=== PATIENT | male | born 1955 | race Caucasian/White ===

== ENCOUNTER 2021-11-06 10:50 | Emergency (ER) | payer BC, OTHER ==
[~2021-11-06] VITALS: Ht 177 cm; Wt 86.0 kg
--- NOTE | 2021-11-06 10:54 | ED General ---
General Stated Complaint: SYNCOPAL EPISODE History of Present Illness Date Seen by Provider: Nov 06, 2021 Time Seen by Provider: 10:50 Initial Comments 66-year-old male with no significant PM is brought in by EMS with complaints of passing out while he was cutting grass and weeds today morning. There are multiple witnesses around him when this occurred. Patient was initially found to be hypotensive by EMS and was given IV fluids with resulting improvement in his blood pressure. Witnesses deny any signs of seizures. Witnesses reported that patient passed out and was out for about a minute. Patient states that he felt lightheaded and nauseous at the same time and fainted. Denies history of seizures or cardiovascular or neurological history. Denies recent illnesses, fever, chest pain, shortness of breath, palpitation, diarrhea or constipation, dysuria. Patient drinks about 1-1/2 pots of coffee today morning, and did not eat any breakfast or drink any water. Patient was outside doing outdoor work when this occurred. Allergies and Home Medications Allergies Coded Allergies: No Known Drug Allergies (Unverified , 11/06/21) Patient Home Medication List Home Medication List Reviewed: Yes Review of Systems Review of Systems Constitutional: other (light headed) EENTM: no symptoms reported Respiratory: no symptoms reported Cardiovascular: syncope Gastrointestinal: nausea, vomiting Genitourinary: no symptoms reported Musculoskeletal: no symptoms reported Skin: other (diaphoresis) Psychiatric/Neurological: Other (syncope) Hematologic/Lymphatic: No Symptoms Reported Immunological/Allergic: no symptoms reported Physical Exam Vital Signs Vital Signs - First Documented 11/06/21 11:22 Temp 36.4 Pulse 66 Resp 16 B/P (MAP) 123/87 (99) Pulse Ox 99 O2 Delivery Room Air Capillary Refill : Height, Weight, BMI Height: '" Weight: lbs. oz. kg; BMI Method: General Appearance: Mild Distress, Thin HEENT: PERRL/EOMI Neck: Full Range of Motion, Normal Inspection, Non Tender, Supple Respiratory: Chest Non Tender, Lungs Clear, Normal Breath Sounds, No Accessory Muscle Use Cardiovascular: Regular Rate, Rhythm, No Edema Gastrointestinal: Normal Bowel Sounds, No Organomegaly, Non Tender, Soft Back: No CVA Tenderness Neurologic/Psychiatric: Alert, Oriented x3, No Motor/Sensory Deficits, Normal Mood/Affect, director of community center II-XII Norm as Tested Skin: Diaphoresis Lymphatic: No Adenopathy Focused Exam Lactate Level 11/06/21 11:08: Lactic Acid Level 3.43*H 11/06/21 13:32: Lactic Acid Level 1.56 Lactic Acid Level Laboratory Tests Test 11/06/21 11:08 11/06/21 13:32 Lactic Acid Level 3.43 MMOL/L (0.50-2.00) *H 1.56 MMOL/L (0.50-2.00) Progress/Results/Core Measures Suspected Sepsis SIRS Temperature: Pulse: Respiratory Rate: Laboratory Tests 11/06/21 11:08: White Blood Count 7.0 Blood Pressure / Mean: 11/06/21 11:08: Lactic Acid Level 3.43*H 11/06/21 13:32: Lactic Acid Level 1.56 Laboratory Tests 11/06/21 11:08: Creatinine 1.05, INR Comment 1.0, Platelet Count 422H, Total Bilirubin 0.4 Results/Orders Lab Results Laboratory Tests Test 11/06/21 11:08 11/06/21 13:32 11/06/21 13:52 Range/Units White Blood Count 7.0 4.3-11.0 10^3/uL Red Blood Count 4.49 4.30-5.52 10^6/uL Hemoglobin 10.9 L 13.3-17.7 g/dL Hematocrit 35 L 40-54 % Mean Corpuscular Volume 78 L 80-99 fL Mean Corpuscular Hemoglobin 24 L 25-34 pg Mean Corpuscular Hemoglobin Concent 31 L 32-36 g/dL Red Cell Distribution Width 15.5 H 10.0-14.5 % Platelet Count 422 H 130-400 10^3/uL Mean Platelet Volume 9.9 9.0-12.2 fL Immature Granulocyte % (Auto) 0 % Neutrophils (%) (Auto) 52 42-75 % Lymphocytes (%) (Auto) 26 12-44 % Monocytes (%) (Auto) 18 H 0-12 % Eosinophils (%) (Auto) 4 0-10 % Basophils (%) (Auto) 1 0-10 % Neutrophils # (Auto) 3.6 1.8-7.8 10^3/uL Lymphocytes # (Auto) 1.8 1.0-4.0 10^3/uL Monocytes # (Auto) 1.3 H 0.0-1.0 10^3/uL Eosinophils # (Auto) 0.3 0.0-0.3 10^3/uL Basophils # (Auto) 0.1 0.0-0.1 10^3/uL Immature Granulocyte # (Auto) 0.0 0.0-0.1 10^3/uL Neutrophils % (Manual) 58 % Lymphocytes % (Manual) 27 % Monocytes % (Manual) 10 % Eosinophils % (Manual) 4 % Band Neutrophils 1 % Clumped Platelets SLIGHT Microcytosis SLIGHT Claudine Cells SLIGHT Elliptocytes SLIGHT Acanthocytes SLIGHT Prothrombin Time 13.7 12.2-14.7 SEC INR Comment 1.0 0.8-1.4 Activated Partial Thromboplast Time 22 L 24-35 SEC D-Dimer 0.34 0.00-0.49 UG/ML Sodium Level 136 135-145 MMOL/L Potassium Level 3.9 3.6-5.0 MMOL/L Chloride Level 100 98-107 MMOL/L Carbon Dioxide Level 18 L 21-32 MMOL/L Anion Gap 18 H 5-14 MMOL/L Blood Urea Nitrogen 19 H 7-18 MG/DL Creatinine 1.05 0.60-1.30 MG/DL Estimat Glomerular Filtration Rate 79 BUN/Creatinine Ratio 18 Glucose Level 155 H 70-105 MG/DL Lactic Acid Level 3.43 *H 1.56 0.50-2.00 MMOL/L Calcium Level 8.7 8.5-10.1 MG/DL Corrected Calcium 8.7 8.5-10.1 MG/DL Magnesium Level 1.9 1.6-2.4 MG/DL Total Bilirubin 0.4 0.1-1.0 MG/DL Aspartate Amino Transf (AST/SGOT) 21 5-34 U/L Alanine Aminotransferase (ALT/SGPT) 14 0-55 U/L Alkaline Phosphatase 61 40-136 U/L Troponin I < 0.30 <0.30 NG/ML Total Protein 6.8 6.4-8.2 GM/DL Albumin 4.0 3.2-4.5 GM/DL Serum Alcohol < 10 <10 MG/DL Urine Color YELLOW Urine Clarity CLEAR Urine pH 6.0 5-9 Urine Specific [place] 1.020 1.016-1.022 Urine Protein NEGATIVE NEGATIVE Urine Glucose (UA) NEGATIVE NEGATIVE Urine Ketones 2+ H NEGATIVE Urine Nitrite NEGATIVE NEGATIVE Urine Bilirubin NEGATIVE NEGATIVE Urine Urobilinogen 0.2 < = 1.0 MG/DL Urine Leukocyte Esterase NEGATIVE NEGATIVE Urine RBC (Auto) NEGATIVE NEGATIVE Urine RBC NONE /HPF Urine WBC RARE /HPF Urine Crystals NONE /LPF Urine Bacteria NEGATIVE /HPF Urine Casts NONE /LPF Urine Mucus NEGATIVE /LPF Urine Culture Indicated NO Urine Opiates Screen NEGATIVE NEGATIVE Urine Oxycodone Screen NEGATIVE NEGATIVE Urine Methadone Screen NEGATIVE NEGATIVE Urine Propoxyphene Screen NEGATIVE NEGATIVE Urine Barbiturates Screen NEGATIVE NEGATIVE Ur Tricyclic Antidepressants Screen NEGATIVE NEGATIVE Urine Phencyclidine Screen NEGATIVE NEGATIVE Urine Amphetamines Screen NEGATIVE NEGATIVE Urine Methamphetamines Screen NEGATIVE NEGATIVE Urine Benzodiazepines Screen NEGATIVE NEGATIVE Urine Cocaine Screen NEGATIVE NEGATIVE Urine Cannabinoids Screen NEGATIVE NEGATIVE My Orders Orders - BHUPINDER ASKEW MD Alcohol (11/06/21 10:55) Cbc With Automated Diff (11/06/21 10:55) Comprehensive Metabolic Panel (11/06/21 10:55) Fibrin Degradation Products (11/06/21 10:55) Drug Screen Stat (Urine) (11/06/21 10:55) Lactic Acid Analyzer (11/06/21 10:55) Magnesium (11/06/21 10:55) Protime With Inr (11/06/21 10:55) Partial Thromboplastin Time (11/06/21 10:55) Ua Culture If Indicated (11/06/21 10:55) Troponin I Fs (11/06/21 10:55) Ct Head Wo (11/06/21 10:57) Ekg Tracing (11/06/21 10:57) Continuous Ekg Monitoring (11/06/21 10:57) Ed Iv/Invasive Line Start (11/06/21 10:57) Ns Iv 1000 Ml (Sodium Chloride 0.9%) (11/06/21 11:00) Manual Differential (11/06/21 11:08) Chest 1 View Ap/Pa Only (11/06/21 11:29) Iohexol Injection (Omnipaque 350 Mg/Ml 1 (11/06/21 12:30) Received Contrast (Hold Metformin- Contr (11/06/21 12:30) Sodium Chloride Flush (Catheter Flush Sy (11/06/21 12:30) Ns (Ivpb) (Sodium Chloride 0.9% Ivpb Bag (11/06/21 12:30) Ct Angio Chest/Abd W (11/06/21 12:25) Medications Given in ED Current Medications Medications Dose Ordered Sig/Nadir Route Start Time Stop Time Status Last Admin Dose Admin Iohexol 100 ml ONCE ONCE IV 11/06/21 12:30 11/06/21 12:31 DC 11/06/21 12:41 100 ML Sodium Chloride 100 ml ONCE ONCE IV 11/06/21 12:30 11/06/21 12:31 DC 11/06/21 12:41 100 ML Vital Signs/I&O 11/06/21 11:22 Temp 36.4 Pulse 66 Resp 16 B/P (MAP) 123/87 (99) Pulse Ox 99 O2 Delivery Room Air Capillary Refill : Progress Note : Progress Note 1. SYNCOPE:Vasovagal, DEHYDRATION: - CT HEAD: no acute changes - CXR: unreamrkable - EKG/Troponin: nonischemic - Labs - UA/ UDS unremarkable except positive for ketones - NS IVF bolus - Discussed with Dr Garcia, pt can follow up out-patient with surgery clinic. Advised small frequent meals, avoid large meals and eating late at night, and daily protonix. Stated large hernias can cause vasovagal episodes due to irritation of vagus nerve. - Follow up with surgery clinic within the next 3 to 5 days. -The patient was seen in the ED, and treated appropriately to presentation at a specific point in time. Patient is informed that there is a possibility that disease and illness can evolve and change in acuity rapidly or slowly after patient is discharged from the ER. Precautionary advice given to the patient for immediate return to ER if symptoms worsen or do not resolve, and to seek emergency care sooner rather than later. Pt also advised on the importance of PCP follow up and compliance with management and follow up plan with PCP and/or specialist, as this is part of the management plan. Pt verbally expressed understanding. 2. HIATAL HERNIA: - CTA CHEST & ABDOMEN: see report Diagnostic Imaging Diagonstic Imaging: Xray, CT Plain Films/CT/US/NM/MRI: chest, abdomen, head Comments [facility]. [place], [place] NAME: MARIE KEMP [facility] REC#: [id number] PT STATUS: REG ER : 1955 PHYSICIAN: BHUPINDER ASKEW MD ADMIT DATE: 11/06/21/ER FS Draft Date of Exam:11/06/21 CT ANGIO CHEST/ABD W PROCEDURE: CT angiography of the abdomen and chest with and without contrast. TECHNIQUE: After intravenous administration of contrast, thin section axial CT angiography of the abdomen and chest were obtained. 3D MIP reformats were provided. Auto Exposure Controls were utilized during the CT exam to meet ALARA standards for radiation dose reduction. INDICATION: Syncope/aortic aneurysm CT CHEST: There is good opacification of pulmonary arteries without intraluminal filling defect. Thoracic aorta is of normal caliber with bovine type aortic arch. Atherosclerotic calcification involves coronary arteries. There is also mild thoracic aortic atherosclerotic calcification. Lungs appear clear. There is no significant pleural or pericardial effusion. There is a large hiatal hernia containing fluid. Within the abdomen, note is made of small filling defect adherent to the anterior wall of the upper abdominal aorta measuring approximately 0.5 cm in diameter. Otherwise, abdominal aorta is of normal caliber. There is no evidence of dissection or aneurysm. There is mild abdominal aortic atherosclerotic calcification. No focal hepatic, gallbladder, pancreatic, adrenal gland, splenic or renal abnormality is seen. The stomach is distended with gas and fluid. IMPRESSION: No CTA evidence of aneurysm within the chest or pelvis. Note is made of bovine type aortic arch with coronary artery calcification. Also there is an approximately 0.5 cm focus of noncalcified atherosclerotic plaque or thrombus lung anterior margin near the junction of thoracic and abdominal aorta. Otherwise no significant stenosis, dissection or pseudoaneurysm is identified. There is fluid distention of stomach with fluid extending into moderate to large hiatal hernia. Dictated on workstation # [id number] Dict: 11/06/21 1301 Trans: 11/06/21 1311 [facility] [id number] Interpreted by: GRACE AUGUSTINE MD Electronically signed by: [facility] [place] [place], [place] NAME: MARIE KEPM Alysia [facility] REC#: [id number] PT STATUS: REG ER : 1955 PHYSICIAN: BHUPINDER ASKEW MD ADMIT DATE: 11/06/21/ER FS Draft Date of Exam:11/06/21 CT HEAD WO INDICATION: syncope TECHNIQUE: Routine non contrast-enhanced axial images were obtained from the skull base to the vertex. Auto Exposure Controls were utilized during the CT exam to meet ALARA standards for radiation dose reduction COMPARISON: None. FINDINGS: The ventricles and cortical sulci are diffusely prominent, compatible with age-related volume loss. There are confluent areas of abnormal, low attenuation in the periventricular white matter. This is consistent with small vessel ischemic changes; age-indeterminate. There is no prior study available for comparison. There is no midline shift or mass-effect. No acute intra-axial hemorrhage is seen. There are no abnormal areas of increased or decreased density to suggest acute hemorrhage or edema. No extra-axial masses or collections are present. The bony calvarium is intact. The visualized paranasal sinuses are unremarkable. The mastoid air cells are clear. IMPRESSION: 1. No acute intracranial abnormality. No CT evidence of mass, acute infarct or intracranial hemorrhage. 2. Small vessel ischemic changes in the periventricular and subcortical white matter; likely chronic. Dictated on workstation # [id number] Dict: 11/06/21 1144 Trans: 11/06/21 1147 AS6 [id number] Interpreted by: JACEY MIXON MD Electronically signed by: [facility] [place], [place] NAME: MARIE KEMP [facility] REC#: [id number] PT STATUS: REG ER : 1955 PHYSICIAN: BHUPINDER ASKEW MD ADMIT DATE: 11/06/21/ER FS Signed Date of Exam:11/06/21 CHEST 1 VIEW AP/PA ONLY CLINICAL INDICATION: Patient with syncope. EXAM: Portable chest x-ray upright view. COMPARISON: None. FINDINGS: Lungs/pleura: Lungs are clear. There is no pneumothorax. There is no pleural effusion. Mediastinum: There is prominence of the lower mediastinal region which may represent a hiatal hernia, but abnormality of the distal thoracic aorta should be excluded. Pulmonary vasculature: Unremarkable. Heart: Unremarkable. Bones/extrathoracic soft tissue: Unremarkable. IMPRESSION: 1: There is no radiographic evidence of acute cardiopulmonary process. 2: There is prominence of the lower mediastinal region which may represent a hiatal hernia, but abnormality of the distal thoracic aorta should be excluded. Chest x-ray, PA and lateral views, is suggested for further evaluation. Dictated by: Dictated on workstation # [id number] Dict: 11/06/21 1147 Trans: 11/06/21 1205 AS6 [id number] Interpreted by: NILSA CAZARES MD Electronically signed by: NILSA CAZARES MD 11/06/21 1205 Departure Communication (Admissions) Time/Spoke to Consulting Phy: 14:[address] Garcia, pt can follow up out-patient with surgery clinic. Advised small frequent meals, avoid large meals and eating late at night, and daily protonix Impression Primary Impression: Syncope Qualified Codes: R55 - Syncope and collapse Additional Impressions: Hiatal hernia Disorder of vagus nerve Dehydration Disposition: HOME, SELF-CARE Condition: Improved Departure-Patient Inst. Referrals: JEREMI LARA MD (PCP) Primary Care Physician Patient Instructions: Hiatal Hernia (DC), Vasovagal Response, Dehydration, Adult (DC), Why Water Is Important to Health Add. Discharge Instructions: - Small frequent meals -Avoid large meals and avoid eating late at night -Protonix 40 mg daily -Follow-up with surgery clinic, Dr. Garcia's office: Office phone: [phone]. Call for appointment Scripts Pantoprazole Sodium (Protonix) 40 Mg 40 MG PO DAILY for 28 Days, #28 TAB Prov: BHUPINDER ASKEW MD 11/06/21 BHUPINDER ASKEW MD Nov 06, 2021 10:54
[2021-11-06] MEDS ORDERED: NS IV 1000 ML 1,000 ML IV SCH (11:00)
[2021-11-06 11:11] LABS: BASOPHILS # (AUTO) 0.1 10^3/uL (0.0-0.1); BASOPHILS % (AUTO) 1 % (0-10); EOSINOPHILS # (AUTO) 0.3 10^3/uL (0.0-0.3); EOSINOPHILS % (AUTO) 4 % (0-10); HEMATOCRIT 35 % (40-54); HEMOGLOBIN 10.9 g/dL (13.3-17.7); LYMPHOCYTES # (AUTO) 1.8 10^3/uL (1.0-4.0); LYMPHOCYTES % (AUTO) 26 % (12-44); MEAN CORPUSCULAR HEMOGLOBIN 24 pg (25-34); MEAN CORPUSCULAR HGB CONC 31 g/dL (32-36); MEAN CORPUSCULAR VOLUME 78 fL (80-99); MEAN PLATELET VOLUME 9.9 fL (9.0-12.2); MONOCYTES # (AUTO) 1.3 10^3/uL (0.0-1.0); MONOCYTES % (AUTO) 18 % (0-12); NEUTROPHILS # (AUTO) 3.6 10^3/uL (1.8-7.8); NEUTROPHILS % (AUTO) 52 % (42-75); PLATELET COUNT 422 10^3/uL (130-400)
[2021-11-06 11:23] LABS: PROTHROMBIN TIME PATIENT 13.7 SEC (12.2-14.7)
[2021-11-06 11:24] LABS: ACANTHOCYTES SLIGHT; BAND NEUTROPHILS 1 %; BURR CELLS SLIGHT; ELLIPT/OVALOCYTES SLIGHT; EOSINOPHILS % (MANUAL) 4 %; LYMPHOCYTES % (MANUAL) 27 %; MICROCYTOSIS SLIGHT; MONOCYTES % (MANUAL) 10 %; NEUTROPHILS % (MANUAL) 58 %; PLATELET CLUMPS SLIGHT
[2021-11-06 11:31] LABS: FIBRIN DEGRADATION PRODUCTS 0.34 UG/ML (0.00-0.49)
[2021-11-06 11:35] LABS: POTASSIUM 3.9 MMOL/L (3.6-5.0); SODIUM 136 MMOL/L (135-145)
[2021-11-06 11:36] LABS: ALANINE AMINOTRANSFERASE 14 U/L (0-55); ALKALINE PHOSPHATASE 61 U/L (40-136); BILIRUBIN,TOTAL 0.4 MG/DL (0.1-1.0); BUN/CREATININE RATIO 18; CALCIUM 8.7 MG/DL (8.5-10.1); CARBON DIOXIDE 18 MMOL/L (21-32); CHLORIDE 100 MMOL/L (98-107); CREATININE SERUM 1.05 MG/DL (0.60-1.30); GFR ESTIMATED 79; GLUCOSE 155 MG/DL (70-105); MAGNESIUM 1.9 MG/DL (1.6-2.4); TOTAL PROTEIN 6.8 GM/DL (6.4-8.2)
--- NOTE | 2021-11-06 11:48 | Diagnostic Imaging Report ---
INDICATION: syncope TECHNIQUE: Routine non contrast-enhanced axial images were obtained from the skull base to the vertex. Auto Exposure Controls were utilized during the CT exam to meet ALARA standards for radiation dose reduction COMPARISON: None. FINDINGS: The ventricles and cortical sulci are diffusely prominent, compatible with age-related volume loss. There are confluent areas of abnormal, low attenuation in the periventricular white matter. This is consistent with small vessel ischemic changes; age-indeterminate. There is no prior study available for comparison. There is no midline shift or mass-effect. No acute intra-axial hemorrhage is seen. There are no abnormal areas of increased or decreased density to suggest acute hemorrhage or edema. No extra-axial masses or collections are present. The bony calvarium is intact. The visualized paranasal sinuses are unremarkable. The mastoid air cells are clear. IMPRESSION: 1. No acute intracranial abnormality. No CT evidence of mass, acute infarct or intracranial hemorrhage. 2. Small vessel ischemic changes in the periventricular and subcortical white matter; likely chronic. Dictated by: Dictated on workstation # [id number]
--- NOTE | 2021-11-06 11:54 | Diagnostic Imaging Report ---
CLINICAL INDICATION: Patient with syncope. EXAM: Portable chest x-ray upright view. COMPARISON: None. FINDINGS: Lungs/pleura: Lungs are clear. There is no pneumothorax. There is no pleural effusion. Mediastinum: There is prominence of the lower mediastinal region which may represent a hiatal hernia, but abnormality of the distal thoracic aorta should be excluded. Pulmonary vasculature: Unremarkable. Heart: Unremarkable. Bones/extrathoracic soft tissue: Unremarkable. IMPRESSION: 1: There is no radiographic evidence of acute cardiopulmonary process. 2: There is prominence of the lower mediastinal region which may represent a hiatal hernia, but abnormality of the distal thoracic aorta should be excluded. Chest x-ray, PA and lateral views, is suggested for further evaluation. Dictated by: Dictated on workstation # [id number]
[2021-11-06] MEDS ORDERED: CATHETER FLUSH 10 ML SYR IV PRN (12:30)
[2021-11-06] MEDS ORDERED: IOHEXOL 350 MG/ML 100 ML (OMNIPAQUE 350) VIAL IV ONE (12:30)
[2021-11-06] MEDS ORDERED: HOLD METFORMIN - RECEIVED CONTRAST 20 ML VIAL IV SCH (12:30)
[2021-11-06] MEDS ORDERED: NS 100 ML (IVPB) BAG IV ONE (12:30)
--- NOTE | 2021-11-06 13:12 | Diagnostic Imaging Report ---
PROCEDURE: CT angiography of the abdomen and chest with and without contrast. TECHNIQUE: After intravenous administration of contrast, thin section axial CT angiography of the abdomen and chest were obtained. 3D MIP reformats were provided. Auto Exposure Controls were utilized during the CT exam to meet ALARA standards for radiation dose reduction. INDICATION: Syncope/aortic aneurysm CT CHEST: There is good opacification of pulmonary arteries without intraluminal filling defect. Thoracic aorta is of normal caliber with bovine type aortic arch. Atherosclerotic calcification involves coronary arteries. There is also mild thoracic aortic atherosclerotic calcification. Lungs appear clear. There is no significant pleural or pericardial effusion. There is a large hiatal hernia containing fluid. Within the abdomen, note is made of small filling defect adherent to the anterior wall of the upper abdominal aorta measuring approximately 0.5 cm in diameter. Otherwise, abdominal aorta is of normal caliber. There is no evidence of dissection or aneurysm. There is mild abdominal aortic atherosclerotic calcification. No focal hepatic, gallbladder, pancreatic, adrenal gland, splenic or renal abnormality is seen. The stomach is distended with gas and fluid. IMPRESSION: No CTA evidence of aneurysm within the chest or pelvis. Note is made of bovine type aortic arch with coronary artery calcification. Also there is an approximately 0.5 cm focus of noncalcified atherosclerotic plaque or thrombus lung anterior margin near the junction of thoracic and abdominal aorta. Otherwise no significant stenosis, dissection or pseudoaneurysm is identified. There is fluid distention of stomach with fluid extending into moderate to large hiatal hernia. Dictated by: Dictated on workstation # [id number]
[2021-11-06 13:56] LABS: BILIRUBIN,URINE NEGATIVE (NEGATIVE); CLARITY,URINE CLEAR; COLOR,URINE YELLOW; GLUCOSE, URINE (UA) NEGATIVE (NEGATIVE); KETONES,URINE 2+ (NEGATIVE); LEUKOCYTE ESTERASE ,URINE NEGATIVE (NEGATIVE); NITRITE,URINE NEGATIVE (NEGATIVE); PROTEIN,URINE NEGATIVE (NEGATIVE)
[2021-11-06 14:01] LABS: BACTERIA,URINE NEGATIVE /HPF; WBC,URINE RARE /HPF
[2021-11-06 14:16] LABS: AMPHETAMINE SCREEN, URINE NEGATIVE (NEGATIVE); BARBITURATE SCREEN URINE NEGATIVE (NEGATIVE); BENZODIAZEPINES SCREEN URINE NEGATIVE (NEGATIVE); CANNABINOID SCREEN, URINE NEGATIVE (NEGATIVE); COCAINE SCREEN URINE NEGATIVE (NEGATIVE); METHADONE STAT NEGATIVE (NEGATIVE); OPIATE SCREEN URINE NEGATIVE (NEGATIVE); OXYCODONE STAT NEGATIVE (NEGATIVE); PROPOXYPHENE STAT NEGATIVE (NEGATIVE); TRICYCLIC ANTIDEPRESSANTS SCRE NEGATIVE (NEGATIVE)
[2021-11-06] MEDS ORDERED: PANT40SU PO (14:47)
[2021-11-06 15:01] VITALS: BP 139/79
== END 2021-11-06 14:45 | disposition home or self-care (01) ==
LOC: ER FS 10:52
DX: R55 Syncope and collapse (principal); G52.2 Disorders of vagus nerve; K44.9 Diaphragmatic hernia without obstruction or gangrene; E86.0 Dehydration
CPT/HCPCS: 36415; 70450; 71045; 71275; 74175; 80053; 80306; 81000; 83605; 83735; 84484; 85007; 85027; 85379; 85610; 85730; G0480; 80320; 93005; Q9967

== ENCOUNTER 2021-11-13 09:20 | Outpatient (CLI) | payer BC ==
[~2021-11-13] VITALS: Ht 177.8 cm; Wt 88.9 kg
[~2021-11-13 09:20] MED LIST: PANT40SU PO
[2021-11-13] MEDS ORDERED: MULT-1056 PO (13:35)
[2021-11-13] MEDS ORDERED: PANT40TA52 PO (13:35)
== END 2021-11-13 13:36 | disposition home or self-care (01) ==
LOC: PREOP 09:20
PROVIDERS: ATTEND Surgery
DX: Z01.818 Encounter for other preprocedural examination (principal)

== ENCOUNTER 2021-11-22 10:14 | Day surgery (SDC) | payer BC ==
[~2021-11-22] VITALS: Ht 177 cm; Wt 88.9 kg
[~2021-11-22 10:14] MED LIST changes: +MULT-1056 PO; +PANT40TA52 PO
[2021-11-22] MEDS ORDERED: LACTATED RINGERS 1,000 ML IV ONE (10:22)
[2021-11-22] MEDS ORDERED: LACTATED RINGERS 1,000 ML IV STA (10:28)
[2021-11-22] MEDS ORDERED: HURRICAINE EXT TUBE (BENZOCAINE) XX PRN (10:30)
[2021-11-22] MEDS ORDERED: LIDOCAINE JELLY 2% 6 ML SYRINGE MM PRN (10:30)
[2021-11-22 10:52] VITALS: BP 156/88
--- NOTE | 2021-11-22 11:28 | Progress Note-Pre Operative ---
Pre-Operative Progress Note H&P Reviewed The H&P was reviewed, patient examined and no changes noted. Date Seen by Provider: Nov 22, 2021 Time Seen by Provider: 11:00 Date H&P Reviewed: Nov 22, 2021 Time H&P Reviewed: 11:00 Pre-Operative Diagnosis: MALU FOX MD Nov 22, 2021 11:28
--- NOTE | 2021-11-22 11:29 | Discharge Inst-Surgical ---
D/C Lap Instructions-STEFF Follow Up Activity as tolerated High Fiber Diet 25g or more per day Avoid Alcohol, Caffeine, Spicy [place] and Acid foods. Drink 64 fluid oz or more of fluids per day. Symptoms to Report: Fever over 101 degree F, Nausea/Vomiting If any problems/questions: Contact your physician or go to Emergency Room MALU ARTIS MD Nov 22, 2021 11:29
[2021-11-22] MEDS ORDERED: ONDANSETRON 4 MG/2 ML (SDV) Z0FRAN IVP PRN (11:30)
[2021-11-22] MEDS ORDERED: ONDANSETRON 4 MG (ZOFRAN) ORAL DISSOLVE TAB PO PRN (11:30)
[2021-11-22] MEDS ORDERED: PROPOFOL INJECTION 50 ML IV ONE (11:44)
[2021-11-22] MEDS ORDERED: MIDAZOLAM 2 MG/2 ML (VERSED) VIAL ONE (11:44)
[2021-11-22 12:25] VITALS: BP 105/61
[2021-11-22 12:30] VITALS: BP 96/58
[2021-11-22 12:34] VITALS: BP 101/59
[2021-11-22 12:35] VITALS: BP 101/59
[2021-11-22 12:57] VITALS: BP 113/73
--- NOTE | 2021-11-22 12:57 | Anesthesia-General Post-Op ---
MAC Patient Condition Mental Status/LOC: Same as Preop Cardiovascular: Satisfactory Nausea/Vomiting: Absent Respiratory: Satisfactory Pain: Controlled Complications: Absent Post Op Complications Complications None Follow Up Care/Instructions Patient Instructions None needed. Anesthesiology Discharge Order Discharge Order Patient is doing well, no complaints, stable vital signs, no apparent adverse anesthesia problems. No complications reported per nursing. BRETT CRUZ CRNA Nov 22, 2021 12:57
--- NOTE | 2021-11-22 13:12 | Progress Note-Post Operative ---
Post-Operative Progess Note Surgeon (s)/Can Intake Worker (s) Surgeon MALU ARTIS MD Can Intake Worker: none Pre-Operative Diagnosis GERD Post-Operative Diagnosis reflux esophagitis(grade B), mild dist esoph stricture, large type 3 HH(5cm), mild gastritis. Procedure & Operative Findings Date of Procedure 11/22/21 Procedure Performed/Findings EGD with bx with balloon dilatation. Anesthesia Type mac Estimated Blood Loss Estimated blood loss (mL): minimal Specimens/Packing Specimens Removed ge jxn, antrum MALU ARTIS MD Nov 22, 2021 13:12
--- NOTE | 2021-11-22 21:04 | OPERATIVE REPORT ---
DATE OF SERVICE: 11/22/2021 ATTENDING PRIMARY CARE PHYSICIAN: Dr. Theron Yan. PREOPERATIVE DIAGNOSES: Gastroesophageal reflux disease, syncopal episode, intermittent dysphagia. POSTOPERATIVE DIAGNOSES: Reflux esophagitis, Collin grade B, mild distal esophageal stricture, large type 3 hiatal hernia approximately 5 cm in size, mild gastritis. No distal obstructions. PROCEDURE: EGD with biopsy and balloon dilatation. SURGEON: Mk Garcia MD ANESTHESIA: Monitored anesthesia care. ESTIMATED BLOOD LOSS: Minimal. FINDINGS: Reflux esophagitis, Collin grade B, mild distal esophageal stricture, large hiatal hernia approximately 5 cm in size. This is a type 3, mild gastritis. No distal obstructions. DISPOSITION: The patient tolerated the procedure well. INDICATIONS: The patient is a 66-year-old male who came to the Emergency Department after a syncopal episode as well as dehydration. He had a CT scan performed that day as well, which incidentally showed a large hiatal hernia. The patient reports that he has had a history of reflux and was taking [id number] antacids until more recently. He states that he also had some mild intermittent episodes of dysphagia for specific types of foods. DESCRIPTION OF PROCEDURE: The patient was brought to the endoscopy suite, laid in the left lateral decubitus position. After adequate IV pain and sedative medications and monitored anesthesia care, the mouthpiece was applied. The endoscope was placed in the mouth, visualizing the pharynx and hypopharyngeal region. Vocal cords, epiglottis and vallecula identified and appeared to be normal. The endoscope was then gently intubated into the esophageal opening and esophagus insufflated. The endoscope was then advanced to the first, second and third portion of esophagus at the level of the GE junction. This was intrathoracic consistent with a hiatal hernia. There was also a potential mild stricture in this region. A biopsy was taken with forceps with visualization of good hemostasis. The endoscope was then advanced in the stomach and endoscope retroflexed, visualizing a large type 3 hiatal hernia approximately 5 cm in size. There was a mild gastritis. No ulcers, polyps, or any neoplasms. A biopsy was taken of the antrum to rule out H. pylori with visualization of good hemostasis. The endoscope was then advanced to the pylorus and the first and second portion of the duodenum, which appeared normal with no distal obstructions. The balloon was then placed in the stomach and pulled back to the area of stricture. We then proceeded in a stepwise graded fashion from 2, 4, then eventually 6 atmospheres of pressure or 20 mm in luminal diameter with a mild to moderate resistance and left this in place for approximately 60 seconds. The balloon was then desufflated and removed with visualization of good hemostasis as well as no mucosal tears. The endoscope was withdrawn while taking a second look and suctioning of residual air with no additional findings. The patient tolerated the procedure well. We will continue to recommend the necessary lifestyle and dietary accommodation including small and more frequent meals, avoiding to eating at night as well as head elevation while lying supine. He will also need to avoid caffeinated beverages, spicy, greasy and acidic foods as well as take a small and more frequent meals and avoid eating at night. We will also recommend that he continue to take his Protonix. If he continues to have symptoms despite maximal medical therapy, he may be a candidate for hiatal hernia repair and before this, we would proceed with an esophageal manometry study to rule out any esophageal dysmotility disorder before proceeding with the hiatal hernia repair as well as an antireflux procedure. Job ID: [id number] DocumentID: [id number] Dictated Date: 11/22/2021 12:29:15 Security And Compliance Analyst Date: 11/22/2021 21:03:51 Dictated By: MD BRANDON HALL
== END 2021-11-22 13:02 | disposition home or self-care (01) ==
LOC: ENDO 10:14
PROVIDERS: ATTEND Surgery
DX: K29.50 Unspecified chronic gastritis without bleeding (principal); K21.00 Gastro-esophageal reflux disease with esophagitis, without bleeding; K22.2 Esophageal obstruction; K44.9 Diaphragmatic hernia without obstruction or gangrene

== ENCOUNTER 2022-04-10 09:30 | Day surgery (SDC) | payer BC ==
--- NOTE | 2022-04-04 11:10 | HISTORY AND PHYSICAL ---
ATTENDING PRIMARY CARE PHYSICIAN: Dr. Theron Yan. INDICATION: The patient is a 67-year-old male who presented to the emergency department after a syncopal episode as well as dehydration. He had a CT scan performed that day, which incidentally showed a large hiatal hernia. He does report a history of reflux and has been taking [id number] antacids. He also reports mild intermittent episodes of dysphagia with specific types of foods. On 11/22/2021, he underwent EGD with biopsy and balloon dilatation. Findings were reflux esophagitis grade B, mild distal esophageal stricture, large hiatal hernia, 5 cm in size that was a type 3 and a mild gastritis. Biopsies were negative for H. pylori as well as negative for De Jesus's esophagus. He reports that since then he still has a cough and that this is mainly when he lies down at night, but will occasionally still get this in the daytime. He reports that this is not triggered by any foods. He also denies any nausea or vomiting. He did undergo an esophageal manometry study, which did show the LES length shortened at only 1.9 cm and the resting pressure was hypotensive and weak with a mean easily resting pressure of only 8.8 mmHg. The LES did relax normally. There was a 5.4 cm hiatal hernia noted and the esophageal body motility showed 50% of what swallows peristaltic and adequate amplitude of contractions, 30% of wet swallows rapidly propagated peristaltic and 20% were ineffective. Due to these findings, our recommendation was to proceed with a laparoscopic hiatal hernia repair and a posterior Toupet repair. MEDICAL HISTORY: 1. Gastroesophageal reflux disease. 2. Hiatal hernia. PAST SURGICAL HISTORY: 1. Tonsillectomy. 2. Vasectomy. ALLERGIES: NO KNOWN DRUG ALLERGIES. MEDICATIONS: Protonix 40 mg daily. SOCIAL HISTORY: Negative for tobacco smoke. Social for alcohol. FAMILY HISTORY: Father, DVT, stroke. A grandparent with DVT, colon cancer. VITAL SIGNS: Blood pressure is 151/91. Current weight is 190 pounds at 5 feet 10 inches. REVIEW OF SYSTEMS: This well-nourished male in no acute distress. He is not experiencing any shortness of breath or difficulty breathing. No chest pain, palpitations or diaphoresis. No nausea, vomiting or abdominal pain. He does report occasional episodes of heartburn and reflux as well as coughing at night. No diarrhea or constipation. No red blood per rectum. No dark tarry stools. No fever or chills. No recent inadvertent weight loss. All other review of systems negative. PHYSICAL EXAM: CHEST: Clear. Good breath sounds bilaterally. Heart: Regular, no murmurs. EXTREMITIES: No lower extremity edema. Negative Homans sign. HEENT: No scleral icterus. No cervical lymphadenopathy. ABDOMEN: Soft, nontender, nondistended. SKIN: Warm, dry and pink. NEURO: Awake, alert and oriented x3. ASSESSMENT AND PLAN: A 67-year-old male with a history of gastroesophageal reflux disease, who also has symptomatic hiatal hernia. At this time, the risks and benefits of the procedure as well as the procedure, home care instructions were explained to the patient. He verbalized understanding of instructions and agrees to proceed as planned. At this time, we will proceed with scheduling him for a laparoscopic hiatal hernia repair and posterior Toupet repair. CC: Theron Yan - jerman, unable to deliver. Job ID: [id number] DocumentID: [id number] Dictated Date: 04/04/2022 09:03:27 Air Brush Decorator Date: 04/04/2022 11:09:00 Dictated By: AUBREE AMBROCIO APRN
[2022-04-10] VITALS (11 sets, daily range): BP systolic 136–157; BP diastolic 75–92
[~2022-04-10] VITALS: Ht 177.8 cm; Wt 18.2 kg
[~2022-04-10 09:30] MED LIST changes: +FAMO-144 PO
--- NOTE | 2022-04-10 09:54 | Progress Note-Pre Operative ---
Pre-Operative Progress Note Date H&P Reviewed: Apr 10, 2022 Time H&P Reviewed: 09:50 History & Physical: H&P Reviewed, Patient Examed, No changes noted Pre-Operative Diagnosis: Symptomatic Hiatal hernia AUBREE AMBROCIO APRN Apr 10, 2022 09:54
[2022-04-10] MEDS: LACTATED RINGERS 1,000 ML IV PRN ×2 (09:59→11:35)
[2022-04-10] MEDS ORDERED: ONDANSETRON 4 MG/2 ML (SDV) Z0FRAN IVP PRN ×2 (10:00→13:30)
[2022-04-10] MEDS ORDERED: HYDROcodone/APAP 7.5MG-325 MG/15 ML (LORTAB) UDC PO PRN (10:00)
[2022-04-10] MEDS ORDERED: morphine INJ 10 MG/ML 1ML (SYR OR VIAL) IVP PRN (10:00)
[2022-04-10] MEDS ORDERED: ceFAZolin INJECTION 2,000 MG in NS (IVPB) 50 ML IV ONE (10:00)
[2022-04-10] MEDS ORDERED: APAP 325 MG/10.15 ML LIQ (TYLENOL) UDC PO PRN (10:00)
[2022-04-10] MEDS ORDERED: HYDR15SO8 PO (10:01)
[2022-04-10] MEDS ORDERED: ONDA4TAB11 SL (10:01)
--- NOTE | 2022-04-10 10:02 | Discharge Inst-Surgical ---
D/C Lap Instructions-KIDO Reconcile Patient Problems Problems Reviewed?: Yes New, Converted, or Re-Newed RX: RX on Chart Follow Up Appt in 2 weeks Activity as tolerated No driving for 24 hours No driving while on pain medications Incentive Spirometry use every 2 hours while awake Clear liquid diet x5 days, soft foods x5 days, then regular diet NO carbonated beverages, leafy greens, breads or crackers for 6 weeks Symptoms to Report: Fever over 101 degree F, Nausea/Vomiting Infection Signs and Symptoms to report: Increased redness, Foul odor of wound, Increased drainage Bathing instructions: May shower Operative Area Clean/Dry; Keep incision clean/dry If any problems/questions: Contact your physician or go to Emergency Room AUBREE AMBROCIO APRN Apr 10, 2022 10:02
[2022-04-10] MEDS ORDERED: LIDOCAINE/EPI 1%-1:100,000 (XYLOCAINE) 10 ML ONE (10:24)
[2022-04-10] MEDS ORDERED: fentaNYL INJ 100 MCG/2 ML AMP ONE (10:28)
[2022-04-10] MEDS ORDERED: MIDAZOLAM 2 MG/2 ML (VERSED) VIAL ONE (10:28)
[2022-04-10] MEDS ORDERED: ONDANSETRON 4 MG/2 ML (SDV) Z0FRAN ONE (11:51)
[2022-04-10] MEDS ORDERED: LIDOCAINE PF 2% 5 ML (XYLOCAINE) VIAL ONE (11:51)
[2022-04-10] MEDS ORDERED: proPOfol 200 MG/20 ML (DIPRIVAN) VIAL IV ONE (11:51)
[2022-04-10] MEDS ORDERED: ROCURONIUM 10 MG/ML 5 ML SYRINGE IV ONE (11:51)
[2022-04-10] MEDS ORDERED: PHENYLEPHRINE 100 MCG/ML 10 ML (ANESTHESIA) SYR ONE (12:24)
--- NOTE | 2022-04-10 12:52 | Progress Note-Post Operative ---
Post-Operative Progess Note Surgeon (s)/Flow Match Sofa Cutter (s) Surgeon MALU ARTIS MD Flow Match Sofa Cutter: nikkie culver CYLINDER SANDER OPERATOR Pre-Operative Diagnosis Symptomatic Hiatal hernia Post-Operative Diagnosis type 4 paraesophageal hernia. Procedure & Operative Findings Date of Procedure 04/10/22 Procedure Performed/Findings laparoscopic HH and posterior 180 degree wrap Anesthesia Type get Estimated Blood Loss Estimated blood loss (mL): minimal Specimens/Packing Specimens Removed none MALU ARTIS MD Apr 10, 2022 12:52
[2022-04-10] MEDS ORDERED: SEVOFLURANE (ULTANE) 15 ML INHAL SOLN ONE (13:00)
[2022-04-10] MEDS ORDERED: KETOROLAC 30 MG/ML VIAL ONE (13:11)
--- NOTE | 2022-04-10 13:20 | Anesthesia-General Post-Op ---
General Patient Condition Mental Status/LOC: Same as Preop Cardiovascular: Satisfactory Nausea/Vomiting: Absent Respiratory: Satisfactory Pain: Controlled Complications: Absent Post Op Complications Complications None Follow Up Care/Instructions Patient Instructions None needed. Anesthesia/Patient Condition Patient Condition Patient is doing well, no complaints, stable vital signs, no apparent adverse anesthesia problems. No complications reported per nursing. MORGAN OVIEDO CRNA Apr 10, 2022 13:20
[2022-04-10] MEDS ORDERED: morphine INJ 10 MG/ML 1ML (SYR OR VIAL) ONE (13:23)
[2022-04-10] MEDS ORDERED: morphine INJ 10 MG/ML 1ML (SYR OR VIAL) IVP ONE (13:30)
[2022-04-10] MEDS ORDERED: HYDROmorphone 2 MG/ML VIAL (DILAUDID) IV ONE (13:30)
--- NOTE | 2022-04-10 20:31 | OPERATIVE REPORT ---
DATE OF SERVICE: 04/10/2022 ATTENDING PRIMARY CARE PHYSICIAN: Dr. Theron Yan. PREOPERATIVE DIAGNOSIS: Symptomatic paraesophageal hernia. POSTOPERATIVE DIAGNOSIS: Symptomatic type 4 hiatal hernia. PROCEDURE: Laparoscopic hiatal hernia repair and posterior 180-degree wrap. SURGEON: Malu Artis MD UNDERGROUND TRUCK OPERATOR: David Shine APRN ANESTHESIA: General endotracheal. ESTIMATED BLOOD LOSS: Minimal. FINDINGS: Large type 4 hiatal hernia approximately 4 cm in size. There was stomach within the hernia sac. DISPOSITION: The patient tolerated the procedure well. INDICATIONS: The patient is a 67-year-old male who had a syncopal episode as well as dehydration and a CT scan was done and was found to have a large hiatal hernia. On 11/22/2021, he underwent an EGD, biopsy as well as balloon dilatation, was found to have a large hiatal hernia approximately 5 cm in size. The patient reported that he also had recurrent issues with cough and reflux. He does not report any dysphagia at this time. He did have a manometric study, which did show that he had a shortened lower esophageal sphincter and he was found to have a large hiatal hernia and half of his peristaltic movements did show normal contractions. He continued to have symptoms and did want to have the hiatal hernia repaired as well as the loose wrap. DESCRIPTION OF PROCEDURE: The patient was brought to the operating room and laid supine on the table. After adequate IV pain and sedative medications and general endotracheal intubation, the abdomen was prepped and draped in standard surgical fashion. 0.5% Marcaine with epinephrine was used to anesthetize the overlying skin in the left upper abdominal quadrant and transverse skin incision made using a 15 blade. An 0 silk suture was applied to the medial aspect of the incision for retraction and the Veress needle inserted with a low opening pressure of 0 mmHg and the abdomen was then insufflated to 15 mmHg pressure. The Veress needle removed and a 5 mm XL trocar placed followed by a 5 45-degree angle laparoscope visualized the peritoneal cavity. A 4-quadrant abdominal exploration was performed. Once the patient was placed in steep reverse Trendelenburg, a large type 4 hiatal hernia was identified, which was approximately 4-5 cm in size. Under direct visualization, we then proceeded to place a mid abdomen left of midline 10 mm port after the skin and peritoneal lining were anesthetized using 0.5% lidocaine with epinephrine and a transverse skin incision made using a 15 blade. In a similar manner, a mid abdomen right of midline 10 mm port was placed followed by a right upper abdominal quadrant a 5 mm port. The epigastric region was then anesthetized and a vertical skin incision made using a 15 blade and a tract was created through the abdominal wall layers using a trocar to a 5 mm port and through this opening, a medium sized Luz Marina liver retractor was placed and the left lobe of the liver was retracted anteriorly and superiorly. The patient was then placed in steep reverse Trendelenburg position. We then proceeded with reduction of the hernia contents, which was the stomach where a significant sized hiatal hernia approximately 4-5 cm was identified. We then proceeded with meticulous dissection of the hernia sac using Sonicision as well as blunt dissection circumferentially starting at the pars flaccida, also identifying the posterior connective tissue fibers and dissecting posteriorly until the left and right tami of the diaphragm were identified and free of any adhesive tissue. We then proceeded with approximation of the esophageal hiatus using interrupted 2-0 Surgidac sutures using the EndoStitch over a 36-Czech bougie loosely. Good hemostasis was observed. We then proceeded to take down the short gastric vessels and proceeded to do a 180-degree posterior loose wrap encompassing the esophagus, the right superior and lateral aspect of the tami of the diaphragm and the fundus of the stomach. In a similar manner, the left side of the stomach was attached to the esophagus. A linear row of sutures was then made encompassing the stomach to the esophagus and the proximal stomach using interrupted 2-0 Surgidac sutures using the EndoStitch device with visualization with good hemostasis. Good hemostasis was observed and the stomach and esophagus stayed in place under direct visualization. The 10 mm port site fascia and peritoneum were then closed under direct visualization using a Cristino-Rolanda device and 0 Vicryl suture. The abdomen was desufflated and remaining ports removed. All skin incisions were closed using 4-0 Monocryl running subcuticular sutures. Wounds were then cleaned and covered with Dermabond. The patient tolerated the procedure well. We will start IV and oral pain medications as well as clear liquid diet. Tomorrow morning once he is tolerating clears, has good pain control and is ambulating well, we will discharge him home where he will be instructed to follow a phase 1 clear liquid diet for 5 days and slowly advance to a mechanically soft diet for the next 2 weeks. We will also recommend that he refrain from lean meats as well as dry bread crackers as well as salads until 6 weeks from the surgery date. Job ID: [id number] DocumentID: [id number] Dictated Date: 04/10/2022 13:01:55 Industrial Health And Safety Professor Date: 04/10/2022 20:29:00 Dictated By: MALU ARTIS MD
[2022-04-11] VITALS (9 sets, daily range): BP systolic 140–197; BP diastolic 76–104
[2022-04-11] MEDS ORDERED: ENALAPRIL 5 MG (VASOTEC) TAB PO NR (12:15)
--- NOTE | 2022-04-11 12:20 | Progress Note ---
Subjective Date Seen by a Provider: Apr 11, 2022 Time Seen by a Provider: 10:30 Subjective/Events-last exam doing well. tolerating clears. pain controlled. ambulating well. Objective Exam Vital Signs Date Time Temp Pulse Resp B/P (MAP) Pulse Ox O2 Delivery O2 Flow Rate FiO2 04/11/22 12:05 180/78 (112) 04/11/22 11:10 37.3 94 18 184/104 (130) 94 Room Air 04/11/22 07:33 37.0 74 18 153/76 (101) 92 Room Air 04/11/22 03:21 37.6 87 18 149/80 (103) 94 Room Air 04/10/22 23:11 36.9 77 18 156/91 (112) 93 Room Air 04/10/22 20:20 Room Air 04/10/22 19:15 Room Air 04/10/22 19:05 37.0 81 18 157/92 (113) 95 Room Air 04/10/22 15:23 36.7 76 16 156/82 (106) 91 Room Air 04/10/22 14:48 36.3 83 18 147/75 (99) 90 Room Air 04/10/22 14:00 Room Air 04/10/22 13:55 Room Air 04/10/22 13:50 36.7 16 143/75 (97) 94 Room Air 04/10/22 13:40 16 136/78 (97) 96 OxyMask 2.00 04/10/22 13:35 OxyMask 3.00 04/10/22 13:30 18 144/79 (100) 94 OxyMask 3.00 04/10/22 13:20 22 136/78 (97) 96 OxyMask 4.00 04/10/22 13:20 OxyMask 4.00 04/10/22 13:10 21 143/78 (99) 94 OxyMask 6.00 04/10/22 13:05 36.5 19 137/80 (99) 98 OxyMask 6.00 04/10/22 13:05 OxyMask 6.00 I & O 04/11/22 06:59 Intake Total 3200 ml Output Total 1475 ml Balance 1725 ml Capillary Refill : General Appearance: No Apparent Distress HEENT: PERRL/EOMI Neck: Full Range of Motion Respiratory: Chest Non Tender Cardiovascular: Regular Rate, Rhythm Gastrointestinal: normal bowel sounds, soft, tenderness Extremity: Normal Capillary Refill Neurologic/Psychiatric: Alert, Oriented x3 Skin: Normal Color Lymphatic: No Adenopathy Results Lab Microbiology 04/10/22 MRSA Screen - Final, Complete MRSA not isolated Assessment/Plan Assessment/Plan Assess & Plan/Chief Complaint s/p lap HH repair and post 180 degree wrap. clear liquids today then slowly add mechanically soft for next 2 weeks. home soon. MALU ARTIS MD Apr 11, 2022 12:20
[2022-04-11] MEDS ORDERED: AMLO-250 PO (16:39)
== END 2022-04-11 17:05 ==
LOC: SDC 09:30 → 4TH 14:00 → SDC 04-11 17:05
PROVIDERS: ATTEND Surgery
DX: K44.9 Diaphragmatic hernia without obstruction or gangrene (principal)
CPT/HCPCS: 87081; 94664